=== PATIENT | female | born 1955 | race Caucasian/White ===

== ENCOUNTER 2016-10-18 15:36 | Emergency (ER) | payer MEDICARE ==
[2016-10-18] MEDS ORDERED: OPTIRAY 350 100 ML VIAL HMH IV ONE (15:37)
[2016-10-18] MEDS ORDERED: DUONEB INH ONE ×2 (16:38)
[2016-10-18] MEDS ORDERED: ALBUTEROL HFA INH ONE (19:26)
[2016-10-18] MEDS ORDERED: Rivaroxaban 15 MG TAB PO ONE (20:00)
== END 2016-10-18 20:22 | disposition home or self-care (01) ==
LOC: ER 15:36
DX: I26.99 Other pulmonary embolism without acute cor pulmonale (principal); R06.00 Dyspnea, unspecified
CPT/HCPCS: 36415; 71020; 71260; 80053; 82553; 83880; 84484; 85025; 93005; 94640; 99284; Q9967